=== PATIENT | female | born 1990 | race Caucasian/White ===

== ENCOUNTER 2024-06-14 15:16 | Emergency (ER) | payer MEDICAID, SELFPAY ==
[2024-06-14] VITALS (7 sets, daily range): BP systolic 106–137; BP diastolic 78–94; PULSE 60–68; RESP 14–18; TEMP 36.7–37; O2SAT 96–97; BMI 25.9
--- NOTE | 2024-06-14 15:34 | EKG12_ITS ---
Test Reason : CP Blood Pressure : */* mmHG Vent. Rate : 62 BPM Atrial Rate : 62 BPM P-R Int : 140 ms QRS Dur : 68 ms QT Int : 398 ms P-R-T Axes : 58 9 43 degrees QTcB Int : 403 ms Normal sinus rhythm with sinus arrhythmia Normal ECG Confirmed by SONJA LAMAR, KATLIN ([id number]), copy editor ISAAC JOHNSON ([id number]) on 06/16/2024 8:19:31 AM Referred By: Binu Collins Confirmed By: KATLIN CASILLAS MD
--- NOTE | 2024-06-14 15:40 | RAD_ITS ---
PROCEDURE: CHEST PA AND LATERAL 06/14/2024 REASON FOR EXAM: CHEST PAIN TECHNIQUE: Frontal and lateral views of the chest. COMPARISON: None. FINDINGS: Hardware: None. Heart: The heart size is normal. Mediastinum: The mediastinal contour is unremarkable. Lungs: No focal consolidation, pleural effusion or pneumothorax. Bones: The bones are unremarkable. RAD/Chest PA and Lateral IMPRESSION: NEGATIVE CHEST Reading Location: [id number]
[2024-06-14 15:57] LABS: Absolute Lymphocyte Count 3.79 X10^3/uL (0.83-4.51); Absolute Neutrophil Count 4.3 X10^3/uL (2.0-7.7); Basophil# 0.06 X10^3/uL; Basophil% 0.7 % (0-1); Eosinophil# 0.28 X10^3/uL; Eosinophils% 3.1 % (0-5); Hematocrit 39.9 % (37-47); Hemoglobin 14.1 g/dL (12.0-15.0); Lymphocyte # 3.79 X10^3/ul (0.83-4.51); Lymphocyte % 42.2 % (19-41); Mean Corp Hgb Conc 35.3 g/dL (32-36); Mean Corpuscular Volume 90.5 fL (81-99); Mean Platelet Vol. 10.2 fl (6.2-12.0); Monocyte# 0.59 X10^3/uL; Monocyte% 6.6 % (0-10); NRBC Flagged by Analyzer 0 % (0-5); Neutrophil # 4.25 X10^3/uL (2.7-7.7); Neutrophil % 47.2 % (47-70); Platelet Count 226 K/mm3 (150-450); RBC Distribution Width CV 11.9 % (11.6-14.6); RBC Distribution Width SD 39.6 fl (35.1-43.9); Red Blood Count 4.41 M/mm3 (4.2-5.4)
[2024-06-14] MEDS: Ketorolac 15 MG/ML Vial IV (15:59)
--- NOTE | 2024-06-14 16:08 | EDS_ITS ---
HPI <KENY Burgess - Last Filed: 06/14/24 18:26> History of Present Illness Chief Complaint: Chest Pain Narrative Narrative: Patient presenting today due to midsternal chest pain she has had since around 8 AM. She reports that the pain has been constant and feels like a pressure sensation. She reports that the pressure makes her feel short of breath. She denies any personal cardiac history, her dad had cardiac stents placed. She does admit to a tobacco use history, she quit smoking but now vapes. She denies any history of blood clots or recent surgery/travel/immobilization. She has a history of a hysterectomy, no concerns for . She denies fevers, chills, cough, abdominal pain, nausea, and vomiting. PFSH <KENY Burgess - Last Filed: 06/14/24 18:26> PFSH Allergy/AdvReac Type Severity Reaction Status Date / Time No Known Allergies Allergy Verified 06/14/24 15:17 Social History Smoking Status: Current every day smoker tobacco type: e-cigarettes ROS <KENY Burgess - Last Filed: 06/14/24 18:26> ROS ED Constitutional Constitutional ED: Denies chills or fever(s) Cardiovascular Cardiovascular: Reports chest pain; Denies palpitations Respiratory/Chest Respiratory/Chest: Reports dyspnea; Denies cough Gastrointestinal Gastrointestinal: Denies abdominal pain, nausea or vomiting Musculoskeletal Musculoskeletal: Denies arthralgias or myalgias Integumentary Denies rash Neurologic Neurologic: Denies weakness EXAM <KENY Burgess - Last Filed: 06/14/24 18:26> Physical Exam Const Vital Signs: 06/14/24 15:19 06/14/24 15:24 06/14/24 15:28 Temperature 98.6 F Temperature Source Oral Pulse Rate 63 68 Respiratory Rate 18 14 Respiratory Effort Short of Breath Blood Pressure 137/91 H Blood Pressure Mean 106 Pulse Ox 97 Oxygen Delivery Method Room Air 06/14/24 15:30 06/14/24 15:45 06/14/24 16:00 Temperature Temperature Source Pulse Rate 65 Respiratory Rate 16 Respiratory Effort Blood Pressure 117/84 H 130/94 H 111/80 Blood Pressure Mean 94 107 91 Pulse Ox Oxygen Delivery Method 06/14/24 16:15 06/14/24 16:41 Temperature 98.0 F Temperature Source Pulse Rate 68 60 Respiratory Rate 18 16 Respiratory Effort Blood Pressure 114/78 106/79 Blood Pressure Mean 91 88 Pulse Ox 96 Oxygen Delivery Method Positive well nourished, well developed and no apparent distress General Appearance ED: well developed HEENT Reports normocephalic and head/scalp atraumatic Mouth ED: Yes moist mucous membranes normal Eyes PERRL and EOMs intact bilaterally Neck full ROM and supple Chest Wall inspection of chest normal Chest Narrative: Midsternal chest pain patient, no overlying rash Resp normal respiratory effort and clear to auscultation bilaterally Cardio regular rate and regular rhythm GI soft to palpation, non-tender, non-distended and no masses Back/Spine normal ROM and normal to inspection Extremity normal to inspection and full ROM Neuro oriented x3, CN's II-XII intact bilaterally, moves all extremities, no focal motor deficits and no sensory deficits noted Sensorium / Orientation: awake and alert Psych mental status grossly normal and thought process normal Skin no rashes or lesions noted and no wounds <Dr. Binu Collins, DO - Last Filed: 06/14/24 16:47> Physical Exam Const Vital Signs: 06/14/24 15:19 06/14/24 15:24 06/14/24 15:28 Temperature 98.6 F Temperature Source Oral Pulse Rate 63 68 Respiratory Rate 18 14 Respiratory Effort Short of Breath Blood Pressure 137/91 H Blood Pressure Mean 106 Pulse Ox 97 Oxygen Delivery Method Room Air 06/14/24 15:30 06/14/24 15:45 06/14/24 16:00 Temperature Temperature Source Pulse Rate 65 Respiratory Rate 16 Respiratory Effort Blood Pressure 117/84 H 130/94 H 111/80 Blood Pressure Mean 94 107 91 Pulse Ox Oxygen Delivery Method 06/14/24 16:15 06/14/24 16:41 Temperature 98.0 F Temperature Source Pulse Rate 68 60 Respiratory Rate 18 16 Respiratory Effort Blood Pressure 114/78 106/79 Blood Pressure Mean 91 88 Pulse Ox 96 Oxygen Delivery Method <KENY Burgess - Last Filed: 06/14/24 18:26> Heart Score History: Slightly/Non-Suspicious ECG: Normal Age: </= 45 years Risk Factors: 1 or 2 Risk Factors Troponin: </= Normal Limit Score: 1 MDM <KENY Burgess Last Filed: 06/14/24 18:26> [facility] Narrative Medical decision making narrative: Patient presenting today with midsternal chest pain/pressure that started around 9 AM this morning. Symptoms seem to be nonexertional. She is nontoxic- appearing, she is PERC negative, low suspicion for PE. She is very anxious appearing. Cardiac labs obtained, her CBC, BMP, and troponin are unremarkable. Chest x-ray negative for cardiopulmonary abnormality. EKG is normal sinus rhythm with no ischemia or ST elevation. Low suspicion her pain is cardiac in nature. Recommended she follow-up with her PCP and she will be discharged home in stable condition. ED attending note: I evaluated the patient in conjunction with the HO. I agree with his/her statements and above findings. I have personally performed a face to face assessment of the patient and have reviewed the HO Note. I performed a s ubstantive portion of the visit including all aspects of the following. I personally saw the patient performed chart review, physical exam, reviewed labs, imaging (if obtained), and formulated a treatment and management plan. History as above. The patient denies recent surgery in the last 4 weeks or immobilization in the last 3 days, denies previous diagnosis of DVT or PE, hemoptysis, unilateral leg swelling or malignancy with treatment the last 6 months or palliative. No estrogen use noted. Patient denies sudden onset of pain, no tearing sensation, no migratory symptoms, no new numbness, weakness or loss of sensation. Patient denies family history or personal history of Connective tissue disorders (Marfan's Syndrome, Simona Danlos etc) Exam: Hemodynamically stable, clear lungs, no acute distress, pulses symmetric, no stigmata of VTE or CHF on exam. MDM/plan: I have low special for PE as patient lowers Wells score. Low suspicion for aortic dissection by history and physical. Obtained labs images which are unremarkable. I have personally reviewed the patient's chest x-ray. Chest x-ray is unremarkable for pulmonary edema, pneumothorax, pneumonia or focal cardiopulmonary abnormality. Patient's pain started at 8 AM approximately 8 hours prior to arrival. No troponin has sufficient sensitivity specificity rule out ACS given low suspicion young age and lack of risk factors. Patient's is appropriate for discharge home. This note was generated with [employer] software. It may contain incorrect words, spelling, and punctuation that were not noted in review of the chart prior to signing. Lab Data Attestation: I reviewed the patient's lab results. Labs: Laboratory Results - last 24 hr 06/14/24 15:26 WBC 9.0 RBC 4.41 Hgb 14.1 Hct 39.9 MCV 90.5 MCH 32.0 MCHC 35.3 RDW Std Deviation 39.6 RDW Coeff of Kristel 11.9 Plt Count 226 MPV 10.2 Immature Gran % (Auto) 0.200 Neut % (Auto) 47.2 Lymph % (Auto) 42.2 H Robeson % (Auto) 6.6 Eos % (Auto) 3.1 Baso % (Auto) 0.7 Absolute Neuts (auto) 4.3 Absolute Lymphs (auto) 3.79 Nucleated RBC % 0 Sodium 141 Potassium 3.7 Chloride 103 Carbon Dioxide 26.7 Anion Gap 11 BUN 9 Creatinine 0.66 L Estim Creat Clear Calc 98.44 Est GFR (MDRD) Non-Af 119 BUN/Creatinine Ratio 13.5 Glucose 92 Calcium 9.8 Troponin T High Sens < 6 Radiography X-Ray: Read by ED Physician Diagnostic Testing: Clinical Impression(s) from Imaging Studies Chest X-Ray 06/14/24 15:40 IMPRESSION: NEGATIVE CHEST Reading Location: [facility] EKG Initial EKG: Comments: 62 bpm, normal sinus rhythm, no ST elevation <Dr. Binu Collins, DO - Last Filed: 06/14/24 16:47> MDM MDM Narrative Medical decision making narrative: Patient presenting today with midsternal chest pain/pressure that started around 9 AM this morning. Symptoms seem to be nonexertional. She is nontoxic- appearing, she is PERC negative, low suspicion for PE. She is very anxious appearing. Cardiac labs obtained ED attending note: I evaluated the patient in conjunction with the HO. I agree with his/her statements and above findings. I have personally performed a face to face assessment of the patient and have reviewed the HO Note. I performed a substantive portion of the visit including all aspects of the following. I personally saw the patient performed chart review, physical exam, reviewed labs, imaging (if obtained), and formulated a treatment and management plan. History as above. The patient denies recent surgery in the last 4 weeks or immobilization in the last 3 days, denies previous diagnosis of DVT or PE, hemoptysis, unilateral leg swelling or malignancy with treatment the last 6 months or palliative. No estrogen use noted. Patient denies sudden onset of pain, no tearing sensation, no migratory symptoms, no new numbness, weakness or loss of sensation. Patient denies family history or personal history of Connective tissue disorders (Marfan's Syndrome, Simona Danlos etc) Exam: Hemodynamically stable, clear lungs, no acute distress, pulses symmetric, no stigmata of VTE or CHF on exam. MDM/plan: I have low special for PE as patient lowers Wells score. Low omkar picion for aortic dissection by history and physical. Obtained labs images which are unremarkable. I have personally reviewed the patient's chest x-ray. Chest x-ray is unremarkable for pulmonary edema, pneumothorax, pneumonia or focal cardiopulmonary abnormality. Patient's pain started at 8 AM approximately 8 hours prior to arrival. No troponin has sufficient sensitivity specificity rule out ACS given low suspicion young age and lack of risk factors. Patient's is appropriate for discharge home. This note was generated with [employer] dictation software. It may contain incorrect words, spelling, and punctuation that were not noted in review of the chart prior to signing. Lab Data Labs: Laboratory Results - last 24 hr 06/14/24 15:26 WBC 9.0 RBC 4.41 Hgb 14.1 Hct 39.9 MCV 90.5 MCH 32.0 MCHC 35.3 RDW Std Deviation 39.6 RDW Coeff of Kristel 11.9 Plt Count 226 MPV 10.2 Immature Gran % (Auto) 0.200 Neut % (Auto) 47.2 Lymph % (Auto) 42.2 H Robeson % (Auto) 6.6 Eos % (Auto) 3.1 Baso % (Auto) 0.7 Absolute Neuts (auto) 4.3 Absolute Lymphs (auto) 3.79 Nucleated RBC % 0 Sodium 141 Potassium 3.7 Chloride 103 Carbon Dioxide 26.7 Anion Gap 11 BUN 9 Creatinine 0.66 L Estim Creat Clear Calc 98.44 Est GFR (MDRD) Non-Af 119 BUN/Creatinine Ratio 13.5 Glucose 92 Calcium 9.8 Troponin T High Sens < 6 Radiography Diagnostic Testing: Clinical Impression(s) from Imaging Studies Chest X-Ray 06/14/24 15:40 IMPRESSION: NEGATIVE CHEST Reading Location: [facility] Discharge Plan Triage Chief Complaint: Chest Pain ED Midlevel Provider: Alisson Clark ED Provider: Binu Collins Dx/Rx/DC Orders Clinical Impression: Chest pain of unknown etiology Instructions: ED Chest Pain, Uncertain Cause Primary Care Provider: NOT,DEFINED Referrals: NOT,DEFINED [Primary Care Provider] - Activity Restrictions/Additional Instructions: Follow-up with your PCP, if you do not have a PCP you can follow-up at the [facility], their phone number is [phone]. Return for any worsening symptoms. Print Language: Egyptian Disposition Disposition: Home, Self Care Discharge Date/Time: 06/14/24 16:57
[2024-06-14 16:19] LABS: Anion Gap 11 (5-15); BUN 9 mg/dL (4-19); BUN/Creat Ratio 13.5 RATIO (10-20); Calcium,Total 9.8 mg/dL (7.6-11.0); Carbon Dioxide 26.7 mmol/L (21.0-32.0); Chloride 103 mmol/L (98-108); Creatinine, Serum 0.66 mg/dL (0.70-1.20); EST Glomerular Filtration Rate 119 (>60); Estimated Creatinine Clearance 98.44 ml/min (50-250); Glucose 92 mg/dL (70-99); Potassium 3.7 mmol/L (3.3-5.1); Sodium Level 141 mmol/L (133-145); Troponin T High Sensitivity < 6 ng/L (<=14)
== END 2024-06-14 16:57 | disposition home or self-care (01) ==
PROVIDERS: Physician Assistant; Emergency Provider Emergency Medicine; Referring Provider Emergency Medicine; Visit Provider Emergency Medicine
DX: R07.9 Chest pain, unspecified (principal); Z90.710 Acquired absence of both cervix and uterus; F17.290 Nicotine dependence, other tobacco product, uncomplicated
CPT/HCPCS: 71046; 80048; 84484; 85025; 93005; 96374; 99284; A4216